=== PATIENT | female | born 1975 | race Caucasian/White ===

== ENCOUNTER 2017-03-06 07:28 | Day surgery (SDC) | payer OTHER ==
[2017-03-03 10:24] VITALS: Ht 165.1 cm; Wt 57.3 kg
[~2017-03-06] VITALS: Ht 165.1 cm; Wt 57.3 kg
[2017-03-06] VITALS (12 sets, daily range): BP systolic 109–126; BP diastolic 70–88; PULSE 64–98; RESP 12–16
[2017-03-06] MEDS ORDERED: CEFAZOLIN 2 GM/50 ML (PMX) 50 ML IVPB ONE (10:00)
[2017-03-06] MEDS ORDERED: SOD CHLORIDE 0.9% 1,000 ML IV SCH (10:00)
[2017-03-06 10:09] LABS: INR 0.9; PROTIME 12.1 Sec (12.2-14.2); PT RATIO 0.9
[2017-03-06] MEDS ORDERED: PROPOFOL 20 ML ONE (12:23)
[2017-03-06] MEDS ORDERED: FENTAnyl 50 MCG/ML VIAL ONE ×2 (12:23)
[2017-03-06] MEDS ORDERED: MIDAZOLAM 1 MG/ML 2 ML INJ ONE (12:23)
[2017-03-06] MEDS ORDERED: ROPIVACAINE 0.5 % 30 ML VIAL ONE (12:23)
[2017-03-06] MEDS ORDERED: CEFAZOLIN 1 GM INJ ONE (12:26)
[2017-03-06] MEDS ORDERED: METOCLOPRAMIDE 10 MG INJ ONE (12:47)
[2017-03-06] MEDS ORDERED: KETOROLAC 30 MG INJ ONE (12:47)
[2017-03-06] MEDS ORDERED: ONDANSETRON 4 MG INJ ONE (12:47)
[2017-03-06] MEDS ORDERED: DEXAMETHASONE 4 MG/ML 1 ML INJ ONE (12:47)
[2017-03-06] MEDS ORDERED: OXYCODONE/ACETAMINOPHEN (5/325) TAB PO PRN ×2 (13:00)
[2017-03-06] MEDS ORDERED: HYDROmorphONE (0.2 MG/ML) 10ML SYG IV PRN ×3 (13:00)
[2017-03-06] MEDS ORDERED: EPHEDrine SULFATE 50 MG/5 ML SYG IV PRN (13:00)
[2017-03-06] MEDS ORDERED: MEPERIDINE 25 MG INJ IV PRN (13:00)
[2017-03-06] MEDS ORDERED: FENTAnyl 50 MCG/ML VIAL IV PRN ×3 (13:00)
[2017-03-06] MEDS ORDERED: ONDANSETRON 4 MG INJ IV PRN (13:00)
[2017-03-06] MEDS ORDERED: DIPHENHYDRAMINE 50 MG INJ IV PRN (13:00)
--- NOTE | 2017-03-06 13:04 | OPR ---
Date/Time of Note Date/Time of Note DATE: 03/06/17 TIME: 13:01 Operative Report Procedure Date: Mar 06, 2017 Preoperative Diagnosis left shoulder mass Postoperative Diagnosis same Operation Performed 1. excision of left shoulder mass 8 cm mass 6 cm incision 2. localized adjacent tissue transfer with the use of skin flaps 24 sq cm defect 3. therapeutic injection of subcutaneous marcaine cpt code [id number] Surgeon: William DIGGS Anesthesia Type: general Estimated Blood Loss: minimal Specimens left shoulder mass Grafts/Implants: none Complications: no Indications This is a 41-year-old female with past. She requires surgical excision. Risks alternatives benefits and percent were discussed the patient. Patient expresses understanding consents to the operation. Operative\Procedure Findings She was taken to the OR and prepped and draped in usual sterile fashion. Surgical timeout is performed. IV antibiotics given. Transverse incision is made over the left shoulder mass with a 10 blade. Dissection cautery is carried down to the mass. The mass is excised with cautery. Hemostasis is established. Due to large tissue defect localized adjacent tissue transfer with these of skin flaps were performed. Multilayer closure with interrupted 3- 0 Vicryl skin elijah. Therapeutic subcu times Marcaine is injected throughout the whole incision site. Dry dressings were applied. William DIGGS Mar 06, 2017 13:04
[2017-03-06] MEDS ORDERED: BUPIVACAINE 0.25% (MPF) 30 ML INJ ONE (13:28)
[2017-03-06] MEDS ORDERED: HYDROCODONE/APAP (5/325) TAB PO ONE (13:30)
== END 2017-03-06 15:00 | disposition home or self-care (01) ==
LOC: SDS 07:28
PROVIDERS: ATTEND Surgery
DX: D17.22 Benign lipomatous neoplasm of skin and subcutaneous tissue of left arm (principal)
CPT/HCPCS: 14021; 84703; 85610; 88307; J0690; J1100; J1885; J2250; J2405; J2765; J2795; J3010; Z7512; Z7610